=== PATIENT | male | born 1970 | race Hispanic/Latino ===

== ENCOUNTER 2018-08-10 10:28 | Emergency (ER) | payer SELFPAY ==
[2018-08-10] MEDS ORDERED: CEFAZOLIN 1 GM VIAL ONE (11:09)
[2018-08-10] MEDS ORDERED: Morphine 4 MG/ML VIAL ONE (11:11)
[2018-08-10] MEDS ORDERED: Lidocaine 1% w/Epinephrine 1:100K 20 ML VIAL ONE (11:21)
[2018-08-10] MEDS ORDERED: Fentanyl 100 MCG/2 ML VIAL ONE (11:23)
--- NOTE | 2018-08-10 11:34 | RAD ---
RIGHT KNEE 4 VIEWS: HISTORY: Laceration. COMPARISON: None. FINDINGS: There is a deep laceration along the anterior soft tissues at the level of the quadriceps tendon. No rmal location of the patella. No acute fracture or malalignment. IMPRESSION: Deep laceration along the expected location of the quadriceps without retraction of the patella. POS: [facility]
== END 2018-08-10 12:10 | disposition home or self-care (01) ==
LOC: ERS 10:28
DX: S81.011A Laceration without foreign body, right knee, initial encounter (principal); I10 Essential (primary) hypertension; W27.0XXA Contact with workbench tool, initial encounter
CPT/HCPCS: 12032; 20610; 96365; 96375; J0690; J2001; J2270; J3010